=== PATIENT | male | born 1950 | race Caucasian/White ===

== ENCOUNTER 2018-05-20 10:49 | Day surgery (SDC) | payer OTHER, SELFPAY ==
[2018-05-12 10:21] VITALS: BMI 29.0
[2018-05-20] VITALS (7 sets, daily range): BP systolic 136–158; BP diastolic 72–85; PULSE 77–80; RESP 14–18; TEMP 36.4; O2SAT 93–100; BMI 29.0
--- NOTE | 2018-05-20 | PATH_ITS ---
[facility] Accession Number: [id number] . 01 Material submitted: . PART A: LEFT FOOT TISSUE PART B: LEFT FOOT TISSUE . 01 Clinical history: . A: PATHOLOGY IN FORMALIN FOR CRYSTAL ANALYSIS B: IN NORMAL SALINE FOR CRYSTAL ANALYSIS . 02 Diagnosis: A. - B. 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 BFI05/27/2018 . 02 Electronically signed: . Madhu Jose MD, Pathologist NPI- [id number] . 01 Gross description: . (A) Received in formalin is a fragment of strickland-white gritty tissue (0.3 x 0.2 x 0.1 cm). Entirely submitted in cassette A1. (B) Received in saline, labeled left foot crystal analysis gout, is a piece of bright white tissue (0.3 x 0.2 x 0.1 cm). A touch prep slice was prepared and analyzed using the polarized microscope. No needle-like birefringent crystals were identified consistent with monosodium urate crystals. The remaining tissue is submitted intact in cassette B1. ([id number]) /MRV . 02 Microscopic: . Sections from parts A and B are similar and consist of soft tissue stated to be from the left foot. There is focal calcifications present, as well as chronic inflammation with some giant cell reaction. 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 Such a specific diagnosis cannot be made, however, since the material in part B which was submitted in saline and examined with polarized light did not appear to contain any definite urate crystals. . 02 Pathologist provided ICD-10: M10.9 . 02 CPT . 262193, 742110 [facility] [address] [place] [address], [place], [place] [id number] MD Theo Szymanski MD Phone: [phone] Performed at: [address] [facility] [id number] [place], [place] [id number] MD Giselle Fowler MD Phone: [phone]
[2018-05-20] MEDS: LACTATED RINGERS 1,000 ML 42 ML IV ×2 (11:42→14:08)
[2018-05-20] MEDS: CEFAZOLIN 2 GM/100 ML FROZ.PIGGY IV (12:35)
--- NOTE | 2018-05-20 12:56 | SUR.OPER ---
Supine on padded OR bed, head on pillow, arms secured on padded arm boards at <90 degrees abduction, legs uncrossed, safety belt at thigh, tape over blanket over lower legs.
[2018-05-20] MEDS: BUPIVACAINE 0.5% (PF) VIAL 30 ML INJ (13:07)
[2018-05-20] MEDS: LIDOCAINE 2% INJ SDV 5 ML INJ (13:08)
[2018-05-20] MEDS: LIDOCAINE 2% W/EPI INJ 20 ML INJ (13:10)
--- NOTE | 2018-05-20 13:34 | SUR.OPER ---
glasses sent with son.
--- NOTE | 2018-05-20 14:09 | SUR.OPER ---
CULTURE SENT TO LAB PER AFTER SCHOOL PROGRAM DIRECTOR WITHOUT COMPUTER ENTRY BY THIS RN.
--- NOTE | 2018-05-20 14:24 | SUR.OPER ---
SPOKE TO AYAN AT [facility] TO VERIFY PROCESS FOR CRYSTAL ANALYSIS
--- NOTE | 2018-05-20 14:38 | PM.OP.1 ---
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 He has failed to improve with conservative treatment and did not desire any other conservative options. Due to the painful arthritis, he elected to proceed with joint effusion. No guarantees were made or implied regarding surgical outcome. Operation: The patient was taken from the day surgery area back to the OR via gurney, after having been given IV antibiotic prophylaxis. He was placed on the OR table in the supine position. General anesthesia via LMA was established by anesthesiologist. Local anesthetic blockade of the foot was performed with 50 50 lidocaine 12 cc total. A calf tourniquet was placed, and used for small portion of the case. The foot was prepped and draped in usual sterile fashion from toes to knee. Procedure: Arthrodesis, 1st metatarsophalangeal joint, left foot (94115) Attention was directed toward the left foot. A dorsal medial incision was centered over the 1st MTP joint, extending approximately 8 cm in length. Blunt dissection was carried down through the subcutaneous tissue layer, taking care to retract all vital structures and cauterized as necessary for adequate hemostasis. Immediately upon opening the joint, there was quite a bit of white chalky material identified consistent with gouty tophus. The joint erosions around it were quite irregular requiring meticulous dissection of the capsule off of the irregular shaped bone. Capsule was dissected free to mobilize the joint. Appropriate hand and power instrumentation was used to remove the dorsal prominence. The adjacent joint surfaces were severely eroded-1st met head was 75% eroded down to subchondral bone. At this point then the instrumentation was applied with cone and cup Reamer to debride the cartilage surface on the 1st metatarsal head as well as the base of proximal phalanx. Additional K-wire fenestration was used to create 15-25 subchondral drill holes through the plate to promote bleeding and aid in fusion. At this point, a calf tourniquet was applied for approximately 30 min. Aggressive irrigation of the wound with antibiotic solution was performed. Once the joint prep was complete, the 1st MTP was held in anatomic position. Using the appropriate jig, a 4.0 partially-threaded lag screw was placed from medial to lateral across the fusion site. Good position and excellent compression was afforded. Following standard technique, a dorsal locking plate was then applied utilizing combination of 2.7 mm and 3.5 mm locking screws in the proximal phalanx and metatarsal respectively. Fluoroscopy was utilized to confirm adequate length and position of the screws which was excellent. The wound was irrigated once more with antibiotic solution. Closure of the wound was then performed in layers utilizing 3 0, for a common 5 0 Vicryl respectively for the capsule, subcu and skin. Steri-Strips were applied. Postop Marcaine block utilizing 20 cc of 0.5% Marcaine was infiltrated. Light gauze compression bandage was applied. Patient will be placed into his removable cast boot in the recovery room. Patient tolerated the procedure and anesthesia well without apparent complication. He left the OR with vital signs stable and digital perfusion intact. He will be touchdown weight-bearing on the heel in his cast boot and. Has an appointment to be seen for his 1st postop visit in the [place] office in 1 week. Complications: none Condition: stable Disposition: PACU Plan for aftercare: Patient will be touchdown weight-bearing allowed on the heel only in his removable cast boot. He will be seen for followup 1st P OB visit in the wound for an office in approximately 1 week.
--- NOTE | 2018-05-20 14:47 | SUR.PHASEI ---
1431: Pt arrived to PACU at 1431 in stable condition. Report rec'd from Anesthesia and PHOTOGRAPH EDITOR. Pt in NSR, ice pack applied to site and boot at bedside. Will place boot to LLE prior to sending to OPD.
== END 2018-05-20 15:36 | disposition home or self-care (01) ==
PROVIDERS: PCP Family Medicine; Visit Provider Podiatrist
PROC: (CPT 28750; principal; 2018-05-20 12:30)
DX: M20.22 Hallux rigidus, left foot (principal); R26.2 Difficulty in walking, not elsewhere classified; M19.079 Primary osteoarthritis, unspecified ankle and foot; I10 Essential (primary) hypertension; E06.3 Autoimmune thyroiditis; F33.41 Major depressive disorder, recurrent, in partial remission; J45.909 Unspecified asthma, uncomplicated
CPT/HCPCS: 28750; J0690; J1100; J2250; J2405; J2704; J3010